=== PATIENT | female | born 1995 | race Caucasian/White ===

== ENCOUNTER 2020-12-15 17:56 | Emergency (ER) | payer OTHER ==
[~2020-12-15 17:56] MED LIST: CEPHALEXIN500 MG PO; NORCO 5-325 TA1 EACH PO
== END 2020-12-15 21:55 | disposition home or self-care (01) ==
LOC: ER1 17:56
DX: U07.1 COVID-19 (principal); F17.210 Nicotine dependence, cigarettes, uncomplicated
CPT/HCPCS: 87081; 87880; 99284; U0002